=== PATIENT | female | born 1990 | race Caucasian/White ===

== ENCOUNTER 2019-06-24 12:06 | Emergency (ER) | payer MEDICAID ==
[~2019-06-24] VITALS: Ht 160 cm; Wt 98.0 kg
[~2019-06-24 12:06] MED LIST: ANTI14DR2 LEFT EAR; BACDS PO; IBUP-1051 PO; PARO20TA53 PO; TRAM50TA2 PO
[2019-06-24 12:28] VITALS: BP 134/87
[2019-06-24] MEDS ORDERED: ACYC-202 PO (14:18)
== END 2019-06-24 14:30 | disposition home or self-care (01) ==
LOC: ER 12:06
DX: L98.499 Non-pressure chronic ulcer of skin of other sites with unspecified severity (principal); B02.9 Zoster without complications; Z86.14 Personal history of Methicillin resistant Staphylococcus aureus infection; Z56.0 Unemployment, unspecified; Z88.8 Allergy status to other drugs, medicaments and biological substances; Z79.899 Other long term (current) drug therapy
CPT/HCPCS: 99283

== ENCOUNTER 2019-11-07 12:32 | Emergency (ER) | payer MEDICAID ==
[~2019-11-07] VITALS: Ht 160 cm; Wt 110.0 kg
--- NOTE | 2019-11-07 13:17 | NUR ---
bilateral bp per pa margaret right arm-128/86 left arm-145/97
--- NOTE | 2019-11-07 13:42 | NUR ---
Patient complains of having blurred vision with white spots making it difficult to see her computer screen while at work. Shortly after she felt her left hand go numb which slowly spread up her arm. All symptoms resolved at this time.
[2019-11-07 14:23] VITALS: BP 133/93
== END 2019-11-07 14:24 | disposition home or self-care (01) ==
LOC: ER 12:33
DX: R47.02 Dysphasia (principal); R07.9 Chest pain, unspecified; R20.0 Anesthesia of skin; H53.8 Other visual disturbances; F41.9 Anxiety disorder, unspecified; Z87.440 Personal history of urinary (tract) infections; Z86.14 Personal history of Methicillin resistant Staphylococcus aureus infection; Z72.0 Tobacco use; Z88.8 Allergy status to other drugs, medicaments and biological substances; Z79.2 Long term (current) use of antibiotics; Z79.899 Other long term (current) drug therapy
CPT/HCPCS: 82948; 93005; 99283

== ENCOUNTER 2025-01-23 17:15 | Emergency (ER) | payer BC, MEDICAID ==
[~2025-01-23] VITALS: Ht 160 cm; Wt 89.1 kg
[2025-01-23 17:19] VITALS: BP 134/92; PULSE 101; RESP 18; TEMP 98.2; O2SAT 99
--- NOTE | 2025-01-23 17:23 | ELECTROCARDIOGRAPH REPORT ---
[facility] Test Date: 2025-01-23 Test Time: 17:21:35 Pat Name: MABEL FELIPE Department: EMERGENCY ROOM Patient ID: [id number] Room: Gender: F Plane Runner: IDRIS : 1990 Requested By: ROGE RICKS Order Number: [id number] Reading MD: Measurements Intervals [place] Rate: 94 P: 54 HI: 146 QRS: 13 QRSD: 76 T: 39 QT: 343 QTc: 429 Interpretive Statements Sinus rhythm Probable left atrial enlargement Please click the below link to view image of tracing.
== END 2025-01-23 20:41 | disposition left against medical advice (07) ==
LOC: ER 17:15
DX: R00.2 Palpitations (principal); Z88.8 Allergy status to other drugs, medicaments and biological substances; Z53.21 Procedure and treatment not carried out due to patient leaving prior to being seen by health care provider
CPT/HCPCS: 93005